=== PATIENT | male | born 1985 | race African-American/Black ===

== ENCOUNTER 2017-02-22 14:13 | Emergency (ER) | payer MEDICAID, OTHER ==
[~2017-02-22] VITALS: Ht 182.9 cm; Wt 111.0 kg
[2017-02-22 18:27] VITALS: BP 131/67
== END 2017-02-22 18:28 | disposition home or self-care (01) ==
LOC: ER 16:50
DX: R07.81 Pleurodynia (principal); R06.02 Shortness of breath; Z88.0 Allergy status to penicillin; Z98.890 Other specified postprocedural states
CPT/HCPCS: 71010; 99283